=== PATIENT | male | born 1990 | race Caucasian/White ===

== ENCOUNTER 2020-02-12 23:44 | Emergency (ER) | payer MEDICAID, OTHER ==
[~2020-02-12] VITALS: Ht 177.8 cm; Wt 93.0 kg
[2020-02-13] MEDS ORDERED: ONDANSETRON 2MG/ML, 2ML ONE (00:10)
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
--- NOTE | 2020-02-13 00:13 | NUR ---
PT MEIDCATED PER OCT 08 RIGHTS JESSE
[2020-02-13 00:27] LABS: ALBUMIN 4.7 g/dL (3.4-5.0); ANION GAP 5 mmol/L (5-15); CALCIUM 9.5 mg/dL (8.5-10.1); CHLORIDE 106 mmol/L (98-107); CREATININE 1.23 mg/dL (0.7-1.3)
[2020-02-13] MEDS ORDERED: THIAMINE 100 MG in SODIUM CHLORIDE 0.9% 50 ML IVPB ONE (00:30)
[2020-02-13] MEDS ORDERED: SODIUM CHLORIDE FLUSH 10ML SYR IVF ONE (00:30)
[2020-02-13] MEDS ORDERED: SODIUM CHLORIDE 0.9% 1,000ML IVBOLUS ONE (00:30)
[2020-02-13] MEDS ORDERED: ONDANSETRON 2MG/ML, 2ML IVPush ONE (00:30)
[2020-02-13 00:57] VITALS: BP 120/72
== END 2020-02-13 01:47 | disposition home or self-care (01) ==
LOC: ED 02-13 00:13
DX: K52.9 Noninfective gastroenteritis and colitis, unspecified (principal); L55.9 Sunburn, unspecified; R11.2 Nausea with vomiting, unspecified; J45.909 Unspecified asthma, uncomplicated; I10 Essential (primary) hypertension
CPT/HCPCS: 36415; 80048; 80307; 82040; 96365; 96375; 99284; J2405; J3411; J7030